=== PATIENT | male | born 1995 | race Caucasian/White ===

== ENCOUNTER 2019-05-17 18:01 | Emergency (ER) | payer BC, OTHER ==
[2019-05-17] MEDS ORDERED: IBUPROFEN 800 MG TABLET PO ONE (19:51)
[2019-05-17] MEDS ORDERED: MORPHINE SULFATE 10 MG/ML INJ IM ONE (22:09)
--- NOTE | 2019-05-17 22:15 | ER Document Report ---
HPI - HPI Time Seen by Provider: 05/17/19 20:36 Pain Level: 5 Notes: This is a 24-year-old male presenting to the emergency department with generalized pain all over. Patient and report that patient was electrocuted in March while working on a power line. They state that he was seen at [facility] and was sent to [place] where he stayed for ap proximately 5 days. Patient reports he had significant nerve damage to the right side of his body and has been having chronic pain since. Patient reports he is currently being seen by physical therapy, occupational therapy and pain management. He states in pain management he is taking gabapentin and baclofen which typically help with his pain. He states over the last several days he has had an increase in pain in his pain medications are not working. - MUSCULOSKELETAL Musculoskeletal: REPORTS: Extremity pain Past Medical History - General Information source: Patient - Social History Smoking Status: Never Smoker Chew tobacco use (# tins/day): No Frequency of alcohol use: Occasional Drug Abuse: None Family History: Reviewed & Not Pertinent Patient has suicidal ideation: No Patient has homicidal ideation: No - Medical History Medical History: Other - Electrocution in March 2019 Renal/ Medical History: Denies: Hx Peritoneal Dialysis Past Surgical History: Reports: Hx Tonsillectomy - adenoids Vertical Provider Document - CONSTITUTIONAL Notes: PHYSICAL EXAMINATION: GENERAL: Well-appearing, well-nourished and in no acute distress. HEAD: Atraumatic, normocephalic. EYES: Pupils equal round and reactive to light, extraocular movements intact, sclera anicteric, conjunctiva are normal. ENT: Nares patent, oropharynx clear without exudates. Moist mucous membranes. NECK: Normal range of motion, supple without lymphadenopathy LUNGS: Breath sounds clear to auscultation bilaterally and equal. No wheezes rales or rhonchi. HEART: Regular rate and rhythm without murmurs ABDOMEN: Soft, nontender, nondistended abdomen. No guarding, no rebound. No masses appreciated. Musculoskeletal: Normal range of motion, no pitting or edema. No cyanosis. 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 NEUROLOGICAL: Cranial nerves grossly intact. Normal speech, normal gait. Normal sensory, motor exams PSYCH: Normal mood, normal affect. SKIN: Warm, Dry, normal turgor, no rashes or lesions noted. - INFECTION CONTROL TRAVEL OUTSIDE OF THE [place] IN LAST 30 DAYS: No Course - Re-evaluation Re-evalutation: Basic labs were obtained to ensure that there is not some other underlying cause for patient's increase in pain. Labs are unremarkable at this time. I did research the patient in the [facility] aware system and patient has not had an excessive amounts of narcotics prescribed to him nor has he had prescriptions by multiple providers. My plan is to provide him a short course of hydrocodone and have him follow-up with his pain management doctor in hopes that they can change his pain management regimen. Patient is agreeable to this plan. The patient's emergency department workup and current diagnosis were explained to the patient and or family. Follow-up instructions were provided. Medications if prescribed were discussed. Instructions for when to return to the emergency department including specific worrisome symptoms were discussed with the patient and/or family. - Vital Signs Vital signs: Temp Pulse Resp BP Pulse Ox 98.5 F 87 18 105/79 98 05/17/19 18:23 05/17/19 18:23 05/17/19 18:23 05/17/19 18:23 05/17/19 18:23 - Laboratory Result Diagrams: 05/17/19 22:42 05/17/19 22:42 Discharge - Discharge Clinical Impression: Chronic pain Qualifiers: Chronic pain type: due to trauma Qualified Code(s): G89.21 - Chronic pain due to trauma Condition: Stable Disposition: HOME, SELF-CARE Additional Instructions: You were seen in the emergency department today for pain related to your electrocution injury. Your blood work today was normal. I have written you a prescription for some hydrocodone that should help with your pain. Please be mindful as this medication does contain acetaminophen in it so do not take too much acetaminophen in a 24-hour period. You may safely take your other medications with this medication. I have also written you a prescription for some nausea medicine. Please follow-up with your neurologist and your pain management doctor. Unfortunately they will not re-prescribe you any controlled substances in the emergency department again as the pain is considered chronic at this point. We are happy to reevaluate you if you have any new or worsening symptoms. Prescriptions: Hydrocodone Bit/Acetaminophen [Hydrocodon-Acetaminophen 5-325] 1 each PO Q4H #20 tablet Promethazine HCl [Phenergan 25 mg Tablet] 1 - 2 tab PO Q6H PRN #20 tablet PRN Reason: Referrals: JESSICA COOPER PA [Primary Care Provider] - Follow up as needed
[2019-05-17 23:01] LABS: ABSOLUTE BASOPHILS # (AUTO) 0.1 10^3/uL (0.0-0.2); ABSOLUTE LYMPHOCYTES (AUTO) 1.5 10^3/uL (0.5-4.7); ABSOLUTE MONOCYTES (AUTO) 0.7 10^3/uL (0.1-1.4); ABSOLUTE NEUT (AUTO) 6.3 10^3/uL (1.7-8.2); BASOPHILS % (AUTO) 0.6 % (0-2); EOSINOPHILS % (AUTO) 0.5 % (0-6); HEMATOCRIT 45.2 % (37.9-51.0); HEMOGLOBIN 15.7 g/dL (13.5-17.0); LYMPHOCYTES % (AUTO) 17.7 % (13-45); MEAN CORPUSCULAR HEMOGLOBIN 32.2 pg (27.0-33.4); MEAN CORPUSCULAR HGB CONC 34.8 g/dL (32.0-36.0); MEAN CORPUSCULAR VOLUME 93 fl (80-97); MONOCYTES % (AUTO) 8.2 % (3-13); PLATELET COUNT 213 10^3/uL (150-450); RED BLOOD COUNT 4.88 10^6/uL (4.35-5.55); RED CELL DISTRIBUTION WIDTH 13.5 % (11.5-14.0); TOTAL CELLS COUNTED % (AUTO) 100 %; WHITE BLOOD COUNT 8.6 10^3/uL (4.0-10.5)
[2019-05-17 23:15] LABS: ALBUMIN 4.5 g/dL (3.5-5.0); ALKALINE PHOSPHATASE 69 U/L (38-126); ANION GAP 8 (5-19); ASPARTATE AMINO TRANSFERASE 21 U/L (17-59); BILIRUBIN,DIRECT 0.1 mg/dL (0.0-0.4); BILIRUBIN,TOTAL 0.5 mg/dL (0.2-1.3); BLOOD UREA NITROGEN 12 mg/dL (7-20); CALCIUM 9.7 mg/dL (8.4-10.2); CARBON DIOXIDE 30 mmol/L (22-30); CHLORIDE 101 mmol/L (98-107); GLUCOSE 98 mg/dL (75-110); POTASSIUM 4.1 mmol/L (3.6-5.0); TOTAL PROTEIN 7.4 g/dL (6.3-8.2)
[2019-05-18] MEDS ORDERED: HYDROCODONE/ACETAMINOPHEN 5-325 MG (6 TAB/ER DISP) PO PRN (00:09)
[2019-05-18 00:38] VITALS: BP 125/93
== END 2019-05-18 00:38 | disposition home or self-care (01) ==
LOC: ER 18:01
DX: G89.21 Chronic pain due to trauma (principal)
CPT/HCPCS: 99283; 96372; 36415; 85025; 80053; J2270